=== PATIENT | female | born 1955 | race Caucasian/White ===

== ENCOUNTER 2024-01-15 09:42 | Outpatient (OUT) | payer MEDICARE, OTHER, SELFPAY ==
--- NOTE | 2024-01-15 09:56 | XR_ITS ---
The [address] [address] Patient Name: SCOT SOLIS MRN: [id number] date: 1955 Sex: F Assigned Patient Location: [facility] Current Patient Location: Accession/Order Number: [id number] Exam Date: 01/15/2024 09:58 Report Date: 01/16/2024 09:56 At the request of: ARLENE SPAULDING Procedure: XR chest 2V PROCEDURE: XR chest 2V DATE: 01/15/2024 8:58 AM CDT COMPARISONS: None. CLINICAL INDICATION: 69 years Female Chronic Cough R05.3 FINDINGS: The cardiomediastinal silhouette and pulmonary vasculature are within normal limits. The lungs are clear. There is no evidence of pleural effusion or pneumothorax. XR/XR chest 2V IMPRESSION: Chest radiograph is within normal limits. Electronically authenticated by: LEVON DOS SANTOS Date: 01/16/2024 09:56
== END 2024-01-15 09:43 | disposition home or self-care (01) ==
LOC: LAB 09:49 → RAD 09:57
PROVIDERS: Family Provider Internal Medicine; PCP Internal Medicine; Visit Provider Internal Medicine
DX: R05.3 Chronic cough (principal)
CPT/HCPCS: 71046